=== PATIENT | male | born 1945 | race American Indian/Alaskan Native ===

== ENCOUNTER 2020-05-21 11:22 | Day surgery (SDC) | payer MEDICARE ==
[2020-05-20 10:01] LABS: Hematocrit 37.3 % (35.5-45.6); Hemoglobin 13.4 gm/dl (11.8-15.2); Mean Corpuscular HGB Conc 36 % (32-34); Mean Corpuscular Volume 95 fl (84-94); Platelet Count 164 K/mm3 (140-440); Red Blood Count 3.92 M/mm3 (3.65-5.03); Red Cell Distribution Width 12.8 % (13.2-15.2)
[2020-05-20 10:45] LABS: Alanine Aminotransferase 20 units/L (7-56); Albumin 4.4 g/dL (3.9-5); BUN/Creatinine Ratio 19; Blood Urea Nitrogen 17 mg/dL (9-20); Calcium 9.3 mg/dL (8.4-10.2); Hemolysis Index 28
[2020-05-21] MEDS ORDERED: ceFAZolin/STERILE WATER 2 GM/20 ML SYRINGE IV NR (11:40)
[2020-05-21] MEDS ORDERED: LACTATED RINGERS 1,000 ML ONE (11:59)
[2020-05-21] MEDS ORDERED: LACTATED RINGERS 1,000 ML IV SCH (12:00)
[2020-05-21] MEDS ORDERED: ONDANSETRON 4 MG/2 ML INJ IV PRN (12:14)
[2020-05-21] MEDS ORDERED: HYDROmorphone 1 MG/1 ML INJ IV PRN ×2 (12:14)
--- NOTE | 2020-05-21 12:15 | Anesthesia Day of Surgery ---
Anesthesia Day of Surgery - Day of Surgery Patient Examined: Yes Patient H&P Reviewed: Yes Patient is NPO: Yes
--- NOTE | 2020-05-21 12:17 | Anesthesia Consultation ---
Anesthesia Consult and Med Hx Date of service: 05/21/20 - Airway Anesthetic Teeth Evaluation: Chipped ROM Head & Neck: Adequate (S/P Posterior cervical laminectomy) Mental/Hyoid Distance: Adequate Mallampati Class: Class II Intubation Access Assessment: Good - Pre-Operative Health Status ASA Pre-Surgery Classification: ASA2 Proposed Anesthetic Plan: General - Pulmonary Hx Smoking: No (+2FS) Hx Sleep Apnea: No (SABINO PRE SCREEN HIGH RISK) - Cardiovascular System Hx Hypertension: Yes (X 12 YRS) Hx Coronary Artery Disease: No (Pt reports a negative NST 4 years ago) Hx Valvular Heart Disease: Yes (MVP) - Central Nervous System Hx Psychiatric Problems: No - Gastrointestinal Hx Gastroesophageal Reflux Disease: Yes (Dietary) - Hematic Hx Anemia: No - Other Systems Hx Alcohol Use: Yes (WINE QD) Hx Cancer: Yes (Prostate)
[2020-05-21] MEDS ORDERED: HYDROmorphone 1 MG/1 ML INJ ONE (14:22)
[2020-05-21] MEDS ORDERED: LIDOCAINE MPF (2%) 20 MG/1 ML VIAL 5 ML ONE (14:22)
[2020-05-21] MEDS ORDERED: propofoL 200 MG/20 ML VIAL IV ONE (14:22)
--- NOTE | 2020-05-21 14:48 | Post Operative Note ---
Date of procedure: 05/21/20 Pre-op diagnosis: cap Post-op diagnosis: same Findings: as above Procedure: cysto cryo ablation prostate Anesthesia: AMMY Surgeon: DIONICIO GALAN Estimated blood loss: minimal Pathology: none Condition: stable Disposition: PACU
[2020-05-21] MEDS ORDERED: SODIUM CHLORIDE 0.9% 1000 ML 1,000 ML ONE (14:49)
--- NOTE | 2020-05-21 14:49 | Discharge Summary ---
Short Stay Discharge Plan Activity: other (no straining ) Weight Bearing Status: Full Weight Bearing Diet: low fat, low cholesterol, low salt Special Instructions: other (ice pack in rr and x 24 hrs ) Durable Medical Equipment Needed Upon Discharge: other (ice teach louise care ) Follow up with: NENITA NICHOLAS MD [Primary Care Provider] - 7 Days DIONICIO GALAN MD [Staff Physician] - 7 Days
[2020-05-21] MEDS ORDERED: SODIUM CHLORIDE 0.9% IRRIG SOLN 2000 ML IR ONE (15:00)
[2020-05-21] MEDS ORDERED: ONDANSETRON 4 MG/2 ML INJ ONE (16:10)
[2020-05-21] MEDS ORDERED: MEPERIDINE 25 MG/1 ML INJ ONE (16:34)
[2020-05-21] MEDS ORDERED: MEPERIDINE 25 MG/1 ML INJ IV PRN (16:39)
[2020-05-21 17:39] VITALS: BP 113/52
--- NOTE | 2020-05-21 19:05 | Operative Report ---
PREOPERATIVE DIAGNOSIS: Prostate cancer, mostly left lobe. POSTOPERATIVE DIAGNOSIS: Prostate cancer, mostly left lobe. PROCEDURE: Cryosurgical ablation of prostate. SURGEON: Dr. Louis. ANESTHESIA: General. FINDINGS: This is a gentleman, who has an elevated PSA and prostate cancer. All risks and complications were discussed. DESCRIPTION OF PROCEDURE: The patient was brought to the operating room and placed on the operating room table. Following induction of anesthesia, placed in lithotomy position, prepped and draped in usual sterile fashion. Schafer catheter was inserted. Ultrasound was inserted. The gland measured about 25 grams. The area was marked and the probes 1 and 2 were easily placed. The temperature probe, Denonvilliers and external sphincter were placed. Probes 5 and 6 and 3 and 4 were placed. We set all the lengths about 3 cm, some were just a little more 3.3 cm. The probes were checked in multiple planes multiple times. Once they were all in position, the Schafer was removed and flexible cystoscopy, we placed the Amplatz wire and the warmer was easily placed under ultrasound guidance. Two Freezes were carried out. We watched Denonvilliers, which we got down to about 3 degrees and we had excellent ice formation. The patient tolerated the procedure well. First ____ and then a second ____ was carried out. The warmer was left in and pressure was applied. An 18 coude was placed. He was brought to recovery in stable condition. JOB# [id number] [place]/TIM
--- NOTE | 2020-05-21 19:20 | Post Anesthesia Evaluation ---
- Post Anesthesia Evaluation Patient Participated: Yes Airway Patent: Yes Stable Respiratory Function: Yes Nausea/Vomiting: No Temp > 96.8F: Yes Pain Manageable: Yes Adequeate Hydration: Yes Anesthesia Complications: Yes Block Receding Appropriately: Not Applicable Patient on Ventilator: No
== END 2020-05-21 18:10 | disposition home or self-care (01) ==
LOC: OR 11:22
PROVIDERS: ATTEND Urology
DX: C61 Malignant neoplasm of prostate (principal); Z20.828 Contact with and (suspected) exposure to other viral communicable diseases; I25.10 Atherosclerotic heart disease of native coronary artery without angina pectoris; E78.00 Pure hypercholesterolemia, unspecified; I10 Essential (primary) hypertension; K21.9 Gastro-esophageal reflux disease without esophagitis; Z79.899 Other long term (current) drug therapy; Z79.82 Long term (current) use of aspirin; Z98.49 Cataract extraction status, unspecified eye; Z90.49 Acquired absence of other specified parts of digestive tract; Z72.89 Other problems related to lifestyle; Z98.890 Other specified postprocedural states
CPT/HCPCS: 36415; 55873; 80053; 85027; A4217; C2618; J0690; J1170; J2175; J2405; J2704; J7030; J7120; U0003